=== PATIENT | female | born 1985 | race Hispanic/Latino ===

== ENCOUNTER 2021-01-18 12:46 | Day surgery (SDC) | payer MEDICAID ==
[2021-01-18] MEDS ORDERED: hydrALAZINE 20 MG/ML VIAL SLOW IVP PRN (14:20)
[2021-01-18 16:29] LABS: SARS-CoV-2 NAA Rapid Test Not Detected (NotDetected)
== END 2021-01-18 16:54 | disposition home or self-care (01) ==
LOC: CSHLD/OP 12:46
PROVIDERS: ATTEND Obstetrics & Gynecology
DX: O99.891 Other specified diseases and conditions complicating pregnancy (principal); O99.013 Anemia complicating pregnancy, third trimester; O09.33 Supervision of pregnancy with insufficient antenatal care, third trimester; O99.820 Streptococcus B carrier state complicating pregnancy; R03.0 Elevated blood-pressure reading, without diagnosis of hypertension; Z20.822 Contact with and (suspected) exposure to COVID-19; Z3A.31 31 weeks gestation of pregnancy; Z87.59 Personal history of other complications of pregnancy, childbirth and the puerperium; Z79.899 Other long term (current) drug therapy
CPT/HCPCS: 0240U; 76816; 82239; 99285

== ENCOUNTER 2021-03-01 18:32 | Day surgery (SDC) | payer MEDICAID ==
[2021-03-01 19:38] VITALS: BMI 26.9
[2021-03-01] MEDS ORDERED: hydrALAZINE 20 MG/ML VIAL SLOW IVP PRN (19:58)
== END 2021-03-01 23:45 | disposition home health service (06) ==
LOC: CSHLD/OP 18:32
PROVIDERS: ATTEND Student in an Organized Health Care Education/Training Program
DX: O99.891 Other specified diseases and conditions complicating pregnancy (principal); R03.0 Elevated blood-pressure reading, without diagnosis of hypertension; O26.893 Other specified pregnancy related conditions, third trimester; L29.9 Pruritus, unspecified; O09.33 Supervision of pregnancy with insufficient antenatal care, third trimester; O99.213 Obesity complicating pregnancy, third trimester; O99.013 Anemia complicating pregnancy, third trimester; O99.820 Streptococcus B carrier state complicating pregnancy; Z3A.37 37 weeks gestation of pregnancy
CPT/HCPCS: 99283

== ENCOUNTER 2021-03-08 11:49 | Inpatient (IN) | payer MEDICAID, SELFPAY ==
[~2021-03-08 11:49] MED LIST: Bupivacaine 0.25% HCL 30 ML VIAL ONE
[2021-03-08] MEDS ORDERED: hydrALAZINE 20 MG/ML VIAL SLOW IVP PRN ×2 (12:07→13:22)
[2021-03-08 12:58] LABS: #Eosinphils 0.1 10x3/uL (0.0-0.5); #Monocytes 0.5 10x3/uL (0.0-1.1); #Neutrophils 5.7 10x3/uL (1.5-8.4); %Basophils 0.3 % (0.0-2.0); %Eosinophils 1.7 % (0.0-6.0); %Lymphocytes 17.7 % (18.0-47.0); %Monocytes 6.7 % (0.0-10.0); %Neutrophils 72.3 % (40.0-75.0); Hemoglobin 10.8 g/dL (12.0-15.5); Mean Corpuscular HGB CONC 32.8 g/dL (32.0-36.0); Mean Corpuscular Volume 88.4 fl (81.6-98.3); Mean Platelet Volume 11.8 fl (7.4-10.4); Platelet Count 218 10x3/uL (150-450); RBC Distribution Width 14.4 % (11.5-14.5); Red Blood Cell (RBC) Count 3.72 10x6/uL (3.90-5.03); White Blood Cell (WBC) Count 7.8 10x3/uL (3.5-10.5)
[2021-03-08 12:59] VITALS: BMI 40.6
[2021-03-08 13:12] LABS: ALT (SGPT) 28 U/L (8-55); AST (SGOT) 24 U/L (5-34); Albumin 2.8 g/dL (3.5-5.0); Alkaline Phosphatase 258 U/L (40-110); Anion Gap 13 mmol/L (10-20); BUN (Urea Nitrogen) 8 mg/dL (7.0-18.7); Bilirubin, Total 0.3 mg/dL (0.2-1.2); Calc. Creatinine Clearance 246 mL/min (70-130); Calcium 8.4 mg/dL (7.8-10.44); Carbon Dioxide 18 mmol/L (22-29); Chloride 111 mmol/L (98-107); Globulin 3.5 g/dL (2.4-3.5); Glucose 92 mg/dL (70-105); Potassium 3.8 mmol/L (3.5-5.1); Protein, Total 6.3 g/dL (6.0-8.3); Sodium 138 mmol/L (136-145)
[2021-03-08] MEDS ORDERED: Ondansetron PF 4 MG/2 ML Vial IVP PRN ×2 (13:22→23:40)
[2021-03-08] MEDS ORDERED: Promethazine HCl 25 MG/ML VIAL IM PRN ×2 (13:22→23:40)
[2021-03-08] MEDS ORDERED: Penicillin G Potassium 5 MILL.UNITS in Sodium Chloride 0.9% 100 ML IVPB SCH (13:30)
[2021-03-08] MEDS ORDERED: Lidocaine 1% (PF) 30 ML VIAL SC PRN (14:12)
[2021-03-08] MEDS ORDERED: NS w/ Oxytocin 30 units 500 ML IV SCH (14:15)
[2021-03-08] MEDS: Lactated Ringer's 1,000 ML IV SCH (14:17)
[2021-03-08 15:15] LABS: Hemoglobin 11.1 g/dL (12.0-15.5); Mean Corpuscular HGB CONC 32.8 g/dL (32.0-36.0); Mean Corpuscular Hemoglobin 29.1 pg (27.0-33.0); Mean Corpuscular Volume 88.7 fl (81.6-98.3); Mean Platelet Volume 12.2 fl (7.4-10.4); Platelet Count 230 10x3/uL (150-450); RBC Distribution Width 14.5 % (11.5-14.5); Red Blood Cell (RBC) Count 3.81 10x6/uL (3.90-5.03); White Blood Cell (WBC) Count 8.3 10x3/uL (3.5-10.5)
[2021-03-08 15:33] LABS: Creatinine, Urine 203.66 mg/dL (47-110)
[2021-03-08 15:39] LABS: Syphilis Antibody Nonreactive (Nonreactive); Syphilis Antibody Index 0.05 S/CO (<1.00 Non-Reactive)
[2021-03-08 15:40] LABS: Hep B Surf Ag Non-Reactive S/CO (NonReactive)
[2021-03-08 15:41] LABS: HIV (1/2) Antibody/Antigen Non-Reactive (NonReactive); HIV 1/2 INDEX 0.07 S/CO (<1.00)
[2021-03-08 15:42] LABS: HBSAg Index 0.16 S/CO (0-0.99)
[2021-03-08] MEDS ORDERED: Ibuprofen 800 MG TAB PO PRN (15:58)
[2021-03-08] MEDS ORDERED: Carboprost 250 MCG/ML AMP IM PRN (15:58)
[2021-03-08] MEDS ORDERED: Misoprostol 200 MCG TAB PR PRN (15:58)
[2021-03-08] MEDS ORDERED: Diphenoxylate HCl/Atropine Tablet PO PRN ×2 (15:58)
[2021-03-08] MEDS ORDERED: Methylergonovine 0.2 MG/ML VIAL IM PRN (15:58)
[2021-03-08 16:28] LABS: SARS-CoV-2 NAA Rapid Test DETECTED (NotDetected)
[2021-03-08] MEDS: Penicillin G 2.5 MILL.units 2.5 MILL.UNITS in Premix Bag 1 BAG IVPB SCH (18:39)
[2021-03-08] MEDS ORDERED: Fentanyl 2 mcg/Bup 0.1% Cadd 100 ML ONE (22:44)
[2021-03-08] MEDS ORDERED: Naloxone HCl 0.4 mg/ml Vial IVP PRN ×2 (23:40)
[2021-03-08] MEDS ORDERED: diphenhydrAMINE 50 MG/ML VIAL IVP PRN (23:40)
[2021-03-08] MEDS ORDERED: ePHEDrine Sulfate 50 MG/10 ML VIAL SLOW IVP PRN (23:40)
[2021-03-08] MEDS ORDERED: Hydrocerin (Eucerin) Cream 120 gm Jar TOP PRN (23:40)
[2021-03-08] MEDS ORDERED: Acetaminophen 325 MG TAB PO PRN (23:40)
[2021-03-08] MEDS ORDERED: Lactated Ringer's 500 ML IV PRN (23:40)
[2021-03-08] MEDS ORDERED: Communication Order-Pharmacy FS SCH (23:45)
[2021-03-08] MEDS ORDERED: Fentanyl 2 mcg/Bupivacaine 0.1% Cassette 100 ML EPIDURAL SCH (23:45)
[2021-03-09] MEDS ORDERED: Lidocaine 1% (PF) 30 ML VIAL ONE (02:53)
[2021-03-09] MEDS: Lactated Ringer's 1,000 ML IV SCH (06:01)
[2021-03-09] MEDS: Penicillin G 2.5 MILL.units 2.5 MILL.UNITS in Premix Bag 1 BAG IVPB SCH ×2 (06:01→06:02)
[2021-03-09] MEDS ORDERED: Misoprostol 200 MCG TAB VAG PRN (06:17)
[2021-03-09] MEDS ORDERED: Milk Of Magnesia 30 ML UDCUP PO PRN (06:17)
[2021-03-09] MEDS ORDERED: Preparation H Ointment 28 GM TUBE PR PRN (06:17)
[2021-03-09] MEDS ORDERED: Lanolin Ointment 7 GM TUBE TOP PRN (06:17)
[2021-03-09] MEDS ORDERED: Bisacodyl 10 MG SUPP PR PRN (06:17)
[2021-03-09] MEDS ORDERED: Benzocaine-Menthol 82.5 ML CAN TOP PRN (06:17)
[2021-03-09] MEDS ORDERED: NS w/ Oxytocin 30 units 500 ML IV SCH (06:17)
[2021-03-09] MEDS ORDERED: Boostrix 0.5 ML (Tdap) VIAL IM ONE (06:17)
[2021-03-09] MEDS ORDERED: Ondansetron PF 4 MG/2 ML Vial IVP PRN (06:17)
[2021-03-09] MEDS ORDERED: hydrALAZINE 20 MG/ML VIAL SLOW IVP PRN (06:17)
[2021-03-09] MEDS: Ibuprofen 800 MG TAB PO SCH ×3 (06:27→22:16)
[2021-03-09] MEDS: Ferrous Sulfate 325 MG TAB PO SCH (08:49)
[2021-03-09] MEDS: Docusate 100 MG CAP PO SCH ×2 (09:00→22:16)
[2021-03-09] MEDS: Prenatal Vitamin 1 TAB PO SCH (09:00)
[2021-03-10] MEDS: diphenhydrAMINE 25 MG CAP PO PRN ×2 (00:10→05:20)
[2021-03-10 01:11] VITALS: TEMP 97.8
[2021-03-10] MEDS: Ibuprofen 800 MG TAB PO SCH (05:20)
[2021-03-10] MEDS: Ferrous Sulfate 325 MG TAB PO SCH (07:16)
[2021-03-10] MEDS: Docusate 100 MG CAP PO SCH (08:02)
[2021-03-10] MEDS: Prenatal Vitamin 1 TAB PO SCH (08:02)
[2021-03-10 11:40] VITALS: BP 123/59
== END 2021-03-10 14:10 | disposition home or self-care (01) | DRG 805 ==
LOC: CSHLD/OP 11:49 → CSHLD 14:36 → CSHPP 03-09 05:50
PROVIDERS: ADMIT Obstetrics & Gynecology; ATTEND Obstetrics & Gynecology
PROC: 8E0ZXY6 Isolation (ICD-10-PCS; 2021-03-08)
PROC: 10E0XZZ Delivery of Products of Conception, External Approach (ICD-10-PCS; principal; 2021-03-09)
PROC: 0KQM0ZZ Repair Perineum Muscle, Open Approach (ICD-10-PCS; 2021-03-09)
DX: O26.62 Liver and biliary tract disorders in childbirth (principal); Z37.0 Single live birth; Z3A.38 38 weeks gestation of pregnancy; K83.1 Obstruction of bile duct; U07.1 COVID-19; O98.52 Other viral diseases complicating childbirth; O99.824 Streptococcus B carrier state complicating childbirth; O13.4 Gestational [pregnancy-induced] hypertension without significant proteinuria, complicating childbirth; O99.214 Obesity complicating childbirth; O99.02 Anemia complicating childbirth; D64.9 Anemia, unspecified; O69.81X0 Labor and delivery complicated by cord around neck, without compression, not applicable or unspecified; O70.1 Second degree perineal laceration during delivery
CPT/HCPCS: 36415; 80053; 82239; 82570; 84156; 85025; 86780; 86850; 86900; 86901; 87340; 87389; 99285; J2540; J2590; J3490; J7120; S0020; U0002